=== PATIENT | female | born 1990 ===

== ENCOUNTER 2017-10-19 12:00 | Emergency (ER) | payer OTHER ==
[2017-10-19 12:16] VITALS: BMI 25.0
[2017-10-19 12:17] VITALS: BP 113/54; TEMP 96.5; O2SAT 98
--- NOTE | 2017-10-19 12:50 | ED PDOC ---
HPI: Abdomen Time Seen by Provider: 10/19/17 12:29 Chief Complaint (Nursing): Abdominal Pain Chief Complaint (Provider): nausea/vomiting/diarrhea History Per: Patient History/Exam Limitations: no limitations Onset/Duration Of Symptoms: Hrs (8), Sudden Onset Current Symptoms Are (Timing): Intermittent Episodes Severity: Mild Location Of Pain/Discomfort: Diffuse Quality Of Discomfort: Cramping Associated Symptoms: Chills, Nausea, Vomiting, Diarrhea, Loss Of Appetite. denies: Back Pain, Chest Pain, Constipation, Urinary Symptoms Exacerbating Factors: None Alleviating Factors: None Last Bowel Movement: Today Additional Complaint(s): 26yo female c/o sudden onset diarrhea, abdominal cramps and 2 episodes vomiting overnight. 5yo daughter also in ED with similar symptoms which started suddenly. No rash, no lethargy, no syncope. Past Medical History Reviewed: Historical Data, Nursing Documentation, Vital Signs Vital Signs: Last Vital Signs Temp 96.5 F L 10/19/17 12:16 Pulse 77 10/19/17 15:07 Resp 18 10/19/17 15:07 BP 113/54 L 10/19/17 12:16 Pulse Ox 98 10/19/17 15:07 - Medical History PMH: No Chronic Diseases - Surgical History Surgical History: No Surg Hx - Family History Family History: States: Unknown Family Hx - Living Arrangements Living Arrangements: With Family - Social History Current smoker - smoking cessation education provided: No - Home Medications Home Medications: Ambulatory Orders Medication Instructions Recorded Acetaminophen with Codeine 1 tab PO Q6 #10 tab 08/08/16 [Tylenol with Codeine No. 3 300 mg-30 mg] Ondansetron [Zofran] 4 mg PO Q6H PRN #10 tab 10/19/17 - Allergies Allergies/Adverse Reactions: Allergies Allergy/AdvReac Type Severity Reaction Status Date / Time No Known Allergies Allergy Verified 10/19/17 12:19 Review of Systems ROS Statement: Except As Marked, All Systems Reviewed And Found Negative Constitutional: Positive for: Chills. Negative for: Fever ENT: Negative for: Nose Pain, Nose Discharge, Throat Pain Cardiovascular: Negative for: Chest Pain Respiratory: Negative for: Cough, Shortness of Breath Gastrointestinal: Positive for: Nausea, Vomiting, Abdominal Pain, Diarrhea. Negative for: Constipation, Melena, Hematochezia Genitourinary Female: Negative for: Dysuria, Frequency Skin: Negative for: Rash, Lesions, Jaundice Neurological: Positive for: Dizziness. Negative for: Weakness, Numbness, Headache Physical Exam - Reviewed Nursing Documentation Reviewed: Yes Vital Signs Reviewed: Yes - Physical Exam Appears: Positive for: Well, Non-toxic, No Acute Distress Head Exam: Positive for: ATRAUMATIC, NORMAL INSPECTION, NORMOCEPHALIC Skin: Positive for: Normal Color, Warm, DRY Eye Exam: Positive for: EOMI, Normal appearance, PERRL ENT: Negative for: Pharyngeal Erythema Neck: Positive for: Normal, Painless ROM Cardiovascular/Chest: Positive for: Tachycardia Respiratory: Negative for: Respiratory Distress Gastrointestinal/Abdominal: Positive for: Bowel Sounds, Soft. Negative for: Tenderness, Guarding Back: Positive for: Normal Inspection Extremity: Positive for: Normal ROM. Negative for: Deformity, Swelling Neurologic/Psych: Positive for: Alert, Oriented. Negative for: Motor/Sensory Deficits - ECG O2 Sat by Pulse Oximetry: 98 Medical Decision Making Medical Decision Making: Trial of zofran ODT, PO challenge, tylenol for body aches. Given young daughter also w symptoms, likely viral etiology. improved in ED, mom wanted to take herself and daughter home. No vomiting for either in ED. Followup PMD. Rx zofran. Disposition - Clinical Impression Clinical Impression: Gastroenteritis - Patient ED Disposition Is Patient to be Admitted: No Counseled Patient/Family Regarding: Studies Performed, Diagnosis, Need For Followup, Rx Given - Disposition Disposition: Routine/Home Disposition Time: 15:05 Condition: STABLE Additional Instructions: Drink plenty of fluids, return to ER for any new or worsening pain, fever, vomiting/diarrhea, or any concern. Wash hands well and avoid close contact with others, this condition could be contagious. Prescriptions: Ondansetron [Zofran] 4 mg PO Q6H PRN #10 tab PRN Reason: Nausea/Vomiting Instructions: Gastroenteritis (ED) Forms: [employer] (Chinese)
[2017-10-19 15:07] VITALS: PULSE 77; RESP 18
[2017-10-19 15:37] LABS: RBC URINE 3 /hpf (0-3); URINE BACTERIA RARE (<OCC); URINE BILIRUBIN NEGATIVE (NEGATIVE); URINE BLOOD NEGATIVE (NEGATIVE); URINE COLOR YELLOW (YELLOW); URINE GLUCOSE (UA) NEG (Normal); URINE KETONE 20 mg/dL (NEGATIVE); URINE LEUKOCYTE ESTERASE LARGE Leu/uL (Negative); URINE PROTEIN 30 mg/dL (NEGATIVE); URINE UROBILINOGEN 0.2-1.0 mg/dL (0.2-1.0)
[2017-10-19 15:45] LABS: WBC URINE 14 /hpf (0-5)
== END 2017-10-19 15:20 | disposition home or self-care (01) ==
LOC: H.ER 12:00
DX: K52.9 Noninfective gastroenteritis and colitis, unspecified (principal)